=== PATIENT | female | born 1955 | race Caucasian/White ===

== ENCOUNTER 2022-10-22 11:14 | Outpatient (REF) | payer MEDICARE, SELFPAY ==
[2022-10-22 12:58] LABS: Anion Gap 12 (12-20); Blood Urea Nitrogen 22 mg/dL (9-16); Calcium 10.4 mg/dL (8.4-10.2); Carbon Dioxide 29 mmol/L (22-29); Chloride 106 mmol/L (96-108); Estimated Glomerular Filt Rate > 60; Glucose Random 97 mg/dL (60-115); Potassium 4.2 mmol/L (3.3-5.1); Sodium 143 mmol/L (135-145)
[2022-10-22 13:32] LABS: Folate 17.6 ng/mL (> or = 4.0); Thyroid Stimulating Hormone 3.66 uIU/mL (0.32-4.0); Vitamin B12 460 pg/mL (200-900)
== END 2022-10-22 11:15 | disposition home or self-care (01) ==
LOC: HO.LAB 11:14
PROVIDERS: PCP Internal Medicine; Visit Provider Psychiatry & Neurology Neurology
DX: G30.9 Alzheimer's disease, unspecified (principal)
CPT/HCPCS: 36415; 80048; 82607; 82746; 84436; 84443

== ENCOUNTER 2023-03-04 13:20 | Outpatient (REF) | payer MEDICARE, SELFPAY ==
--- NOTE | ~2023-03-04 | CT_ITS ---
EXAMINATION: CT head/brain wo IV con CLINICAL INFORMATION: Reason for Exam ALZHEIMERS DEMENTIA COMPARISON: None. TECHNIQUE: Contiguous axial imaging was performed from the skull base to vertex without intravenous contrast. Sagittal and coronal reformatted images were obtained. This CT examination was performed using dose optimization techniques as appropriate, variously including the following: * Automated exposure control * Adjustment of mA and/or kV according to patient size (this includes techniques or standardized protocols for targeted exams where dose is matched to indication/reason for exam; i.e. extremities or head) Use of iterative reconstruction technique DLP: 665 mGy-cm FINDINGS: Mild to moderate global cerebral volume loss. Patchy periventricular and deep white matter hypoattenuation is nonspecific but likely reflects sequelae of mild chronic microangiopathy. No territorial loss of yu-white differentiation. Intracranial calcific atherosclerosis. No acute intracranial hemorrhage or extra-axial fluid collection. No mass lesion, significant mass effect, or herniation pattern. The orbits are grossly normal. Imaged mild right maxillary sinus mucoperiosteal disease. Single opacified left mastoid air cell. Osseous structures are intact. CT/CT head/brain wo IV con IMPRESSION: Mild to moderate global cerebral volume loss with nonspecific supratentorial white matter disease, presumably mild chronic microangiopathy. No acute intracranial abnormality.
== END 2023-03-04 13:21 | disposition home or self-care (01) ==
LOC: HO.CT 13:20
PROVIDERS: PCP Internal Medicine; Visit Provider Psychiatry & Neurology Neurology
DX: G30.9 Alzheimer's disease, unspecified (principal)
CPT/HCPCS: 70450